=== PATIENT | female | born 1955 | race Caucasian/White ===

== ENCOUNTER 2021-03-03 10:50 | Outpatient (CLI) | payer MEDICARE, OTHER | END 2021-03-03 10:51 | disposition home or self-care (01) | LOC: CSHMAMMO 10:50 | PROVIDERS: ATTEND Preventive Medicine Public Health & General Preventive Medicine | DX: Z13.820 Encounter for screening for osteoporosis (principal); M85.89 Other specified disorders of bone density and structure, multiple sites | CPT/HCPCS: 77080 ==

== ENCOUNTER 2022-03-28 11:18 | Outpatient (CLI) | payer MEDICARE, OTHER | END 2022-03-28 11:19 | disposition home or self-care (01) | LOC: CSHMAMMO 11:18 | PROVIDERS: ATTEND Family Medicine | DX: Z12.31 Encounter for screening mammogram for malignant neoplasm of breast (principal) | CPT/HCPCS: 77063; 77067 ==

== ENCOUNTER 2023-03-04 09:52 | Outpatient (CLI) | payer MEDICARE, OTHER | END 2023-03-04 09:53 | disposition home or self-care (01) | LOC: CSHMAMMO 09:52 | PROVIDERS: ATTEND Internal Medicine Rheumatology | DX: M81.0 Age-related osteoporosis without current pathological fracture (principal); M85.89 Other specified disorders of bone density and structure, multiple sites | CPT/HCPCS: 77080 ==